=== PATIENT | female | born 1990 | race Hispanic/Latino ===

== ENCOUNTER 2021-10-22 07:08 | Outpatient (CLI) | payer MEDICAID ==
[2021-10-22] MEDS ORDERED: LACTATED RINGERS 500 ML IV ONE (07:45)
[2021-10-22 07:56] LABS: Bilirubin,Urine NEG (Negative); Blood,Urine NEG (Negative); Calcium Oxalate Crystals,Urine 1+; Color,Urine Amber (Yellow); Mucus,Urine FEW /HPF; RBC,Urine < 1.0 /HPF (0.0-6.0); Urobilinogen,Urine < 2.0 mg/dL (<2.0)
[2021-10-22 08:16] LABS: Bacteria,Urine 2+ /HPF (Negative)
[2021-10-22] MEDS ORDERED: ONDANSETRON 4 MG/2 ML INJ IV NR (08:34)
[2021-10-22] MEDS ORDERED: MORPHINE 2 MG/1 ML INJ IV NR (08:34)
[2021-10-22] MEDS ORDERED: D5W/LACTATED RINGERS 1,000 ML IV SCH (09:00)
[2021-10-22 09:03] VITALS: BP 112/69
== END 2021-10-22 10:41 | disposition home or self-care (01) ==
LOC: TRG 07:08 → APU 07:09 → TRG 10:41
PROVIDERS: ATTEND Obstetrics & Gynecology
DX: O26.892 Other specified pregnancy related conditions, second trimester (principal); R10.9 Unspecified abdominal pain; Z3A.25 25 weeks gestation of pregnancy
CPT/HCPCS: 59025; 81001; 96365; 96366; 96368; J0690; J2270; J2405; J7121; 96360; J7060

== ENCOUNTER 2021-11-12 09:06 | Outpatient (CLI) | payer MEDICAID ==
[2021-11-12 13:24] VITALS: BP 116/65
== END 2021-11-12 13:39 | disposition home or self-care (01) ==
LOC: LAB 09:06 → APU 13:19 → LAB 13:39
PROVIDERS: ATTEND Obstetrics & Gynecology
DX: O26.893 Other specified pregnancy related conditions, third trimester (principal); Z67.11 Type A blood, Rh negative; Z3A.28 28 weeks gestation of pregnancy
CPT/HCPCS: 86850; 86900; 86901; 96372; J2790